=== PATIENT | male | born 1955 | race Caucasian/White ===

== ENCOUNTER → 2016-12-12 | Outpatient (CLI) | payer BC ==
[~2016-12-12] MED LIST: ABILIFY5 MG; ATIVAN 0.50.5 MG/TAB PO; FLOMAX 0.40.4 MG/CAP PO; LIPITOR 80MG80 MG PO; PERCOCET 325 MG1 TA2 PO; PHENERGAN 25 TA25 MG PO; PRINIVIL10 MG PO; REQUIP XL12 MG PO; REQUIP XL8 MG PO; SINEMET 25/101 UDTAB PO; WELLBUTRIN SR200 MG PO
== END ==
LOC: BHSO 14:09
DX: F31.73 Bipolar disorder, in partial remission, most recent episode manic (principal)

== ENCOUNTER → 2017-02-06 | Outpatient (CLI) | payer BC | LOC: BHSO 10:37 | DX: F31.73 Bipolar disorder, in partial remission, most recent episode manic (principal) ==

== ENCOUNTER → 2017-05-15 | Outpatient (CLI) | payer BC | LOC: BHSO 09:50 | DX: F31.73 Bipolar disorder, in partial remission, most recent episode manic (principal) ==

== ENCOUNTER → 2017-09-04 | Outpatient (CLI) | payer BC | LOC: BHSO 08:54 | DX: F31.81 Bipolar II disorder (principal) | CPT/HCPCS: G0463 ==

== ENCOUNTER → 2017-12-11 | Outpatient (CLI) | payer BC | LOC: BHSO 09:18 | DX: F31.81 Bipolar II disorder (principal) | CPT/HCPCS: G0463 ==

== ENCOUNTER → 2018-04-06 | Outpatient (CLI) | payer MEDICARE, BC | LOC: COL.RAD 03-23 13:15 | DX: M99.71 Connective tissue and disc stenosis of intervertebral foramina of cervical region (principal); M50.30 Other cervical disc degeneration, unspecified cervical region; M47.812 Spondylosis without myelopathy or radiculopathy, cervical region; M48.02 Spinal stenosis, cervical region ==

== ENCOUNTER → 2018-04-16 | Outpatient (CLI) | payer MEDICARE, BC | LOC: BHSO 10:51 | DX: F31.81 Bipolar II disorder (principal) | CPT/HCPCS: G0463 ==

== ENCOUNTER → 2018-07-14 | Outpatient (CLI) | payer MEDICARE, BC | LOC: BHSO 07:57 | DX: F31.81 Bipolar II disorder (principal) | CPT/HCPCS: G0463 ==